=== PATIENT | male | born 1990 | race Caucasian/White ===

== ENCOUNTER → 2017-12-18 | Outpatient (CLI) | payer BC ==
[~2017-12-18] VITALS: Ht 175.3 cm; Wt 74.8 kg
[~2017-12-18] MED LIST: GADOBUTROL 7.5 MMOL/7.5 ML (GADAVIST) VIAL IV ONE; IOHEXOL 300 MG/ML 50 ML (OMNIPAQUE 300) VIAL IV ONE; LIDOCAINE 1% INJ 20 ML (XYLOCAINE) VIAL INJ ONE; LIDOCAINE 1% INJ 50 ML (XYLOCAINE) VIAL ONE
[2017-12-18 10:35] VITALS: BP 118/71
[2017-12-18 10:53] VITALS: BP 118/64
--- NOTE | 2017-12-18 12:52 | Diagnostic Imaging Report ---
INDICATION: Right shoulder pain. Patient presents for fluoroscopically assisted right shoulder injection of contrast solution prior to MRI. FINDINGS: The patient is brought to the procedure room and placed on the table in the supine position. The right shoulder was prepped and draped in the usual sterile fashion. A small amount of 1% lidocaine was utilized for local anesthesia. A 21-gauge needle was advanced into the right shoulder at the rotator interval. A 15 mL solution of iodinated contrast, normal saline and gadolinium was injected under fluoroscopic observation. The needle was withdrawn, hemostasis was obtained. The patient tolerated the procedure well and was sent to MRI in satisfactory condition. 18 seconds of fluoroscopic time was utilized. IMPRESSION: Successful right shoulder injection of gadolinium contrast solution, using fluoroscopy. Dictated by: Dictated on workstation # [id number]
--- NOTE | 2017-12-18 13:29 | Diagnostic Imaging Report ---
MRI RT UPPER EXT JOINT WITH TECHNIQUE: Multiplanar, multisequence MR imaging of the right shoulder was performed after direct intra-articular contrast administration. COMPARISON: None available. INDICATION: Right shoulder pain with multiple prior injuries. FINDINGS: Rotator cuff: No high-grade partial or full-thickness rotator cuff tear. There is focal low-grade partial-thickness fraying of the bursal sided fibers of the anterior supraspinatus. No rotator cuff muscle atrophy or denervation injury. Glenoid labrum: There is irregularity of the undersurface of the posterior superior labrum at the chondral labral junction that is most suggestive of a nondisplaced tear. No paralabral cyst. Long head of biceps: Long head of biceps is normally positioned within the bicipital groove. The intracapsular segment is intact. Bones and cartilage: Humeral head is normal in morphology without fracture or focal osseous lesion. No glenohumeral chondromalacia. The acromioclavicular joint is normal in alignment without significant degenerative change. Soft tissues: Glenohumeral joint is well distended with intra-articular contrast and there is no proliferative synovitis or loose body. No MRI findings to suggest adhesive capsulitis. No fluid or inflammatory like signal within the subacromial/subdeltoid space to indicate bursitis. IMPRESSION: 1. Nondisplaced tear of the posterosuperior glenoid labrum at the chondral labral junction. 2. Focal low-grade partial-thickness fraying of the bursal fibers of the anterior supraspinatus. 3. Long head of biceps is normal. Dictated by: Dictated on workstation # [id number]
== END ==
LOC: RAD 10:28
PROVIDERS: ATTEND Orthopaedic Surgery
DX: M25.511 Pain in right shoulder (principal)
CPT/HCPCS: 23350; 73040; 73222

== ENCOUNTER 2021-08-25 18:21 | Emergency (ER) | payer BC ==
[~2021-08-25] VITALS: Ht 182 cm; Wt 95.0 kg
[2021-08-25] MEDS ORDERED: RX-CEPHALEXIN (KEFLEX) 250 MG CAP PPK#4 PO STA (19:19)
--- NOTE | 2021-08-25 19:23 | ED Upper Extremity ---
General Chief Complaint: Laceration Stated Complaint: RIGHT THUMB LAC Nursing Triage Note: PT CO OF LAC TO R THUMB FROM HAY [employer] BAR. Source: patient Exam Limitations: no limitations History of Present Illness Date Seen by Provider: Aug 25, 2021 Time Seen by Provider: 19:20 Initial Comments To ER with a laceration to the pad of the right thumb after a bar mower came loose. Tetanus was updated 3 years ago. Onset: just prior to arrival Severity: moderate Pain/Injury Location: right thumb Modifying Factors: Worse With Movement Allergies and Home Medications Allergies Coded Allergies: No Known Drug Allergies (Unverified , 12/18/17) Patient Home Medication List Home Medication List Reviewed: Yes Review of Systems Constitutional: see HPI EENTM: see HPI Respiratory: no symptoms reported Cardiovascular: no symptoms reported Genitourinary: no symptoms reported Musculoskeletal: no symptoms reported Skin: see HPI Psychiatric/Neurological: No Symptoms Reported Past [id number] Hx Patient Social History Tobacco Use?: No Substance use?: No Alcohol Use?: Yes Alcohol Frequency: Couple times a week Pt feels they are or have been: No Physical Exam Vital Signs Vital Signs - First Documented 08/25/21 18:25 Temp 36.4 Pulse 63 Resp 18 B/P (MAP) 152/93 (112) Pulse Ox 99 Capillary Refill : Less Than 3 Seconds Height, Weight, BMI Height: 5'9.00" Weight: 165lbs. 0.0oz. [id number]; 28.00 BMI Method: General Appearance: WD/WN, no apparent distress HEENT: PERRL/EOMI, normal ENT inspection Neck: non-tender, full range of motion Respiratory: no respiratory distress, no accessory muscle use Gastrointestinal: normal bowel sounds, non tender Elbow/Forearm: normal inspection, non-tender Wrist: Yes normal inspection, Yes non-tender Hand: Right, laceration (2 cm laceration with depth to subcutaneous tissue to the pad of the right thumb distal to the IP joint. He retains flexion ability at the thumb confirming flexor tendon intact. No exposed bone. The distal flap has brisk capillary refill. A digital block was done using 2 mL of lidocaine buffered with bicarb. This was then allowed to work for a digital block, irrigated the area then closed with 8 simple interrupted sutures size 4-0 Prolene. Covered with antibiotic ointment and tube gauze.) Neurologic/Psychiatric: alert, normal mood/affect, oriented x 3 Skin: normal color, warm/dry Progress/Results/Core Measures Results/Orders My Orders Orders - MICHEL MARIE APRN Rx-Cephalexin Capsule (Rx-Keflex Capsule (08/25/21 19:19) Rx-Hydrocodone/Apap 5-325 Mg (Rx-Vicodin (08/25/21 19:30) Vital Signs/I&O 08/25/21 18:25 Temp 36.4 Pulse 63 Resp 18 B/P (MAP) 152/93 (112) Pulse Ox 99 Blood Pressure Mean: 112 Departure Impression Primary Impression: Thumb laceration Disposition: HOME, SELF-CARE Condition: Stable Departure-Patient Inst. Decision time for Depature: 19:22 Referrals: CABRERA CARTER MD (PCP/Family) Primary Care Physician Patient Instructions: Laceration Repair With Stitches ED Add. Discharge Instructions: . You can remove the dressing tomorrow evening letting water run over this to bathe and shower. Keep this covered with either a Band-Aid or gauze so that these do not snag. Stitches out in 7 to 10 days. All discharge instructions reviewed with patient and/or family. Voiced understanding. MICHEL MARIE APRN Aug 25, 2021 19:23
[2021-08-25 19:39] VITALS: BP 152/93
== END 2021-08-25 19:41 | disposition home or self-care (01) ==
LOC: EDUNIT# 18:21 → ER 18:23
DX: S61.011A Laceration without foreign body of right thumb without damage to nail, initial encounter (principal); W28.XXXA Contact with powered lawn mower, initial encounter
CPT/HCPCS: 12002